=== PATIENT | female | born 1955 | race Caucasian/White ===

== ENCOUNTER 2022-06-12 14:45 | Emergency (ER) | payer MEDICARE, BC ==
[~2022-06-12] VITALS: Ht 160 cm; Wt 61.5 kg
[2022-06-12] MEDS ORDERED: LEVOTHYROXINE75 MC1 PO (15:16)
[2022-06-12] MEDS ORDERED: ZETIA10 MG PO (15:16)
[2022-06-12] MEDS ORDERED: CEPHALEXIN500 M1 PO (19:30)
== END 2022-06-12 21:55 | disposition home or self-care (01) ==
LOC: ED 14:45
DX: R22.1 Localized swelling, mass and lump, neck (principal); Z88.0 Allergy status to penicillin; Z88.1 Allergy status to other antibiotic agents
CPT/HCPCS: 36415; 70491; 71046; 71260; 80048; 85025; J7030; Q9967